=== PATIENT | female | born 1950 | race African-American/Black ===

== ENCOUNTER → 2017-04-03 | Outpatient (CLI) | payer MEDICARE, BC ==
--- NOTE | 2017-04-03 14:17 | Diagnostic Imaging Report ---
EXAM: DXA BONE DENSITY INDICATIONS: Osteoporosis Screening COMPARISON: None. FINDINGS: Proximal left femur total bone mineral density (BMD) (g/cm2):0.754 Femur T-score (standard deviation relative to young adult mean BMD): -1.5 Femur Z-score (standard deviation relative to age-matched control group):-0.1 Proximal left femur neck bone mineral density (BMD) (g/cm2):0.723 Femur T-score (standard deviation relative to young adult mean BMD): -1.1 Femur Z-score (standard deviation relative to age-matched control group):0.6 Lumbar bone mineral density (BMD) (g/cm2):1.033 Lumbar T-score (standard deviation relative to young adult mean BMD): -0.1 Lumbar Z-score (standard deviation relative to age-matched control group):1.9 Change since prior exam (%): Femur:Not applicable. Spine:Not applicable. Change since oldest prior exam (%): Femur:Not applicable. Spine:Not applicable. CONCLUSION: 1. Bone mineral density in the left femur is classified as osteopenia. Fracture risk is increased. 2. Bone mineral density in the spine is classified as normal. Fracture risk is not increased. World Health Organization Classification: *The Z-score is provided for informational purposes. The T-score is preferable for clinical decisions. When comparing exams, a change of >4% is considered statistically significant. SUGGESTED RECOMMENDATIONS: Normal \T\ Osteopenia:Consideration should be given to use of calcium supplementation, daily multiple vitamins and adequate exercise, as preventive measures against osteoporosis, if clinically indicated. Osteoporosis \T\ Severe Osteoporosis:In addition to the above, consideration should be given to medical therapy against osteoporosis, if clinically indicated. Jarrett Castaneda M.D. Dictated by: Jarrett Castaneda M.D. on 04/03/2017 at 14:16 Electronically approved by: Jarrett Castaneda M.D. on 04/03/2017 at 14:16
--- NOTE | 2017-04-12 08:25 | Diagnostic Imaging Report ---
#[id number] - [facility] #BILATERAL DIGITAL SCREENING MAMMOGRAM WITH CAD: 04/03/2017 CLINICAL: Routine screening. Comparison is made to exams dated: 04/08/2016 mammogram, 04/02/2015 mammogram, 03/31/2014 mammogram and 03/27/2013 mammogram - [facility]. Current study contains 4 films. The tissue of both breasts is heterogeneously dense. This may lower the sensitivity of mammography. Current study was also evaluated with a Computer Aided Detection (CAD) system. There are benign vascular calcifications in both breasts. There also are benign scattered calcifications in the right breast. No significant masses, calcifications, or other findings are seen in either breast. There has been no significant interval change. IMPRESSION: BENIGN There is no mammographic evidence of malignancy. A 1 year screening mammogram is recommended. The patient will be notified by letter of the results. Michele Ramirez Jr., D.O. cw/:04/11/2017 13:00:06 Machine Overhauler: Vielka DOMINGUEZ)(M), [facility] letter sent: Compared to Prior B9 Mammogram BI-RADS: 2 Benign
== END ==
LOC: MAMMO 11:40
PROVIDERS: ATTEND Family Medicine
DX: Z12.31 Encounter for screening mammogram for malignant neoplasm of breast (principal); Z13.820 Encounter for screening for osteoporosis; M85.852 Other specified disorders of bone density and structure, left thigh
CPT/HCPCS: 77080